=== PATIENT | female | born 1960 | race Caucasian/White ===

== ENCOUNTER 2024-01-06 15:16 | Emergency (ER) | payer OTHER, SELFPAY ==
[2024-01-06 15:18] VITALS: BP 159/90; PULSE 83; RESP 16; TEMP 36.6; O2SAT 95; BMI 21.7
--- NOTE | 2024-01-06 15:33 | ECG_ITS ---
APPROVED REPORT Exam: Resting ECG HR:78 bpm ECG Measurements Heart Rate 78 AXES NH 153 P 66 QRSd 86 QRS 71 QT 379 T 52 QTc 412 Conclusion SINUS RHYTHM NORMAL ECG Electronically signed by : RAFAELA NICOLE, 01/06/2024 23:56:43
--- NOTE | 2024-01-06 15:48 | CT_ITS ---
PROCEDURE INFORMATION: Exam: CTA Head With Contrast, Arteriography Exam date and time: 01/06/2024 4:32 PM Age: 63 years old Clinical indication: Vertigo TECHNIQUE: Imaging protocol: Computed tomographic angiography of the head with contrast. Exam focused on the arteries. 3D rendering (Not supervised by radiologist): MIP and/or 3D reconstructed images were created by the technologist. Radiation optimization: All CT scans at this facility use at least one of these dose optimization techniques: automated exposure control; mA and/or kV adjustment per patient size (includes targeted exams where dose is matched to clinical indication); or iterative reconstruction. Contrast material: ISOVUE 370; Contrast volume: 100 ml; Contrast route: INTRAVENOUS (IV); COMPARISON: CT HEAD/BRAIN WO CON 01/06/2024 4:32 PM FINDINGS: ANTERIOR CIRCULATION: Right internal carotid artery: Intracranial segment is patent with no significant stenosis. No aneurysm. Right middle cerebral artery: No occlusion or significant stenosis. No aneurysm. Right anterior cerebral artery: No occlusion or significant stenosis. No aneurysm. Left internal carotid artery: Intracranial segment is patent with no significant stenosis. No aneurysm. Left middle cerebral artery: No occlusion or significant stenosis. No aneurysm. Left anterior cerebral artery: The A1 segment of the left anterior cerebral artery is the dominant supply of the anterior cerebral circulation. POSTERIOR CIRCULATION: Right vertebral artery: No occlusion or significant stenosis. No aneurysm. Left vertebral artery: No occlusion or significant stenosis. No aneurysm. Basilar artery: No occlusion or significant stenosis. No aneurysm. Right posterior cerebral artery: No occlusion or significant stenosis. No aneurysm. Left posterior cerebral artery: No occlusion or significant stenosis. No aneurysm. Veins: There is no evidence of venous sinus thrombosis. Brain: There is no evidence of intracranial large vessel stenosis or occlusion. Cerebral ventricles: No ventriculomegaly. Bones/joints: Unremarkable. No acute fracture. Soft tissues: Unremarkable. IMPRESSION: 1. The A1 segment of the left anterior cerebral artery is the dominant supply of the anterior cerebral circulation. 2. There is no evidence of intracranial large vessel stenosis or occlusion. 3. There is no evidence of venous sinus thrombosis.
--- NOTE | 2024-01-06 15:48 | CT_ITS ---
PROCEDURE INFORMATION: Exam: CT Head Without Contrast Exam date and time: 01/06/2024 4:32 PM Age: 63 years old Clinical indication: Other: Vertigo TECHNIQUE: Imaging protocol: Computed tomography of the head without contrast. Radiation optimization: All CT scans at this facility use at least one of these dose optimization techniques: automated exposure control; mA and/or kV adjustment per patient size (includes targeted exams where dose is matched to clinical indication); or iterative reconstruction. COMPARISON: CT ANGIO HEAD 01/06/2024 4:32 PM FINDINGS: Brain: Normal. No hemorrhage. Unremarkable white matter. No mass effect. Cerebral ventricles: No ventriculomegaly. Paranasal sinuses: Visualized sinuses are unremarkable. No fluid levels. Mastoid air cells: Visualized mastoid air cells are well aerated. Bones: Unremarkable. No acute fracture. Soft tissues: Unremarkable. Vasculature: The vasculature demonstrates diffuse moderate atherosclerotic calcification. IMPRESSION: No acute intracranial process is identified.
--- NOTE | 2024-01-06 15:48 | CT_ITS ---
PROCEDURE INFORMATION: Exam: CTA Neck With Contrast Exam date and time: 01/06/2024 4:32 PM Age: 63 years old Clinical indication: Vertigo TECHNIQUE: Imaging protocol: Computed tomographic angiography of the neck with contrast. Exam focused on the cervical segments of the vasculature. 3D rendering (Not supervised by radiologist): MIP and/or 3D reconstructed images were created by the technologist. Radiation optimization: All CT scans at this facility use at least one of these dose optimization techniques: automated exposure control; mA and/or kV adjustment per patient size (includes targeted exams where dose is matched to clinical indication); or iterative reconstruction. Contrast material: ISOVUE 370; Contrast volume: 100 ml; Contrast route: INTRAVENOUS (IV); COMPARISON: CT ANGIO HEAD 01/06/2024 4:32 PM FINDINGS: Limitations: Motion artifact does moderately limit the sensitivity of this examination. Right common carotid artery: No stenosis. No dissection or occlusion. Right internal carotid artery: There is minimal calcification of the right internal carotid origin with less than 50% compromise of the lumen. Right external carotid artery: No occlusion or stenosis of the origin. Left common carotid artery: No stenosis. No dissection or occlusion. Left internal carotid artery: There is mild calcification of the left internal carotid origin with less than 50% compromise of the lumen. Left external carotid artery: No occlusion or stenosis of the origin. Right vertebral artery: No stenosis. No dissection or occlusion. Left vertebral artery: No stenosis. No dissection or occlusion. Thyroid: A 7 mm smooth nodule is seen in the left thyroid on image 110. No follow up is recommended. Soft tissues: Normal. No significant soft tissue swelling. Bones/joints: The spine demonstrates moderate degenerative changes at multiple levels. Lungs: Confluent centrilobular emphysematous changes are present in the lungs. IMPRESSION: 1. Confluent centrilobular emphysematous changes are present in the lungs. 2. Motion artifact does moderately limit the sensitivity of this examination. 3. There is minimal calcification of the right internal carotid origin with less than 50% compromise of the lumen. 4. There is mild calcification of the left internal carotid origin with less than 50% compromise of the lumen. 5. There are codominant vertebral arteries with no stenosis or dissection. COMMENTS: Consistent with the [employer]'s Incidental Findings Committee white paper (J Am Bud Radiol 2015): In patients aged 35 years and older with an incidental thyroid nodule equal to or greater than 1.[address], MRI or extrathyroidal US, further evaluation with dedicated thyroid US is recommended for patients with normal life expectancy and without comorbidities. For smaller nodules without suspicious features, no further evaluation or follow up is recommended. REFERENCES: NASCET CRITERIA. The degree of stenosis in the cervical segment of the internal carotid artery is based on NASCET criteria. Normal is no stenosis. Mild is less than 50% stenosis. Moderate is 50-69% stenosis. Severe is 70% to 99% stenosis. Total occlusion is no detectable patent lumen.
--- NOTE | 2024-01-06 15:56 | [facility].EDGENADL ---
Discharge Plan Disposition Patient Disposition: Home, Self-Care Condition: Good Prescriptions Prescriptions: New diazepam [Valium] 5 mg tablet 5 mg PO Q8H PRN (Reason: vertigo) Qty: 10 0RF meclizine 25 mg tablet 25 mg PO QID PRN (Reason: dizziness) Qty: 20 0RF Referrals Follow up/Referrals: Radha Fink APRN [Nurse Practitioner] - See instructions Provider,Referral, [Primary Care Provider] - See instructions Activity Restrictions/Add. Instructions Additional Instructions/Restrictions: You were evaluated in the emergency department today. There was some blood in your urine, so I would recommend following up with your primary care provider for monitoring of this. You also had low potassium, which your provider can keep an eye on. 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 This is a controlled substance that is very sedating, so use caution. Do not drive or operate heavy machinery while taking this medication. I sent in meclizine, which is the active ingredient Dramamine, for you to take for less severe symptoms. Please follow-up closely with your primary care provider. We have also provided you with information for ENT for assessment as well should your symptoms continue. Return to the emergency department for new or worsening symptoms, such as difficulty walking, new numbness or tingling, new vision changes, or other concerns. Clinical Impressions Clinical Impression: Peripheral vertigo, Hypokalemia Stand Alone Forms Stand Alone Forms: Work/School Release Instructions Patient Instructions: DI for Vertigo, DI for Benign Paroxysmal Positional Vertigo Print Language Print Language: [place] Discharge ED Provider: Charisse Falk General Adult HPI General Chief complaint: Dizziness Stated complaint: Dizzinesss,nausea Time Seen by Provider: 01/06/24 15:35 Mode of Arrival: Ambulatory Source of Information: Patient Limitations: No Limitations Description of Symptoms (Recalled from ER Triage Doc. by RN): Patient reports dizziness when she gets up. States this has been going on since Wednesday. Reports taking a Dramamine and it helped the other day however today it did not help. Denies any pain at this time. History of Present Illness HPI narrative: This patient is a 63-year-old female who reports intermittent dizziness upon position changes that has been going on for approximate 4 days now. She feels like the room is spinning. She did take Dramamine with some improvement, but today it does not seem to be helping. She is able to walk still but has to have some assistance. Symptoms seem to be worse with head movements. She also has nausea associated with this. She denies any significant headache, visual disturbance, numbness, tingling, speech difficulty, or other concerns. Related Data Previous Rx's ?Medication ?Instructions ?Recorded diazepam 5 mg tablet (Valium) 5 mg PO Q8H PRN vertigo #10 tabs 01/06/24 meclizine 25 mg tablet 25 mg PO QID PRN dizziness #20 tabs 01/06/24 Allergies Allergy/AdvReac Type Severity Reaction Status Date / Time No Known Allergies Allergy Verified 01/06/24 15:28 [facility] Disclaimer: The information contained in this section may have been updated after the patient was seen, as this information can be updated by other users. Social History Smoking Status: Never smoker alcohol intake: never current occupational status: employed Travel in the last 8 weeks: None ROS Obtained: Yes All systems reviewed & no additional complaints except as documented Physical Exam General General appearance: alert and in no apparent distress Head Head exam: atraumatic and normocephalic Eye Eye exam: Present normal appearance, PERRL, EOMI and nystagmus (unidirectional horizontal nystagmus to the L.) ENT ENT exam: Present normal exam, normal oropharynx, mucous membranes moist and normal external ear exam Neck Neck exam: Present normal inspection, full ROM and trachea midline; Absent tenderness Chest Chest inspection: Present normal inspection and symmetric chest wall rise; Absent tenderness Respiratory Respiratory exam: Present normal lung sounds bilaterally; Absent respiratory distress, wheezes, stridor or accessory muscle use Cardiovascular Cardiovascular exam: Present regular rate and normal rhythm Abdominal Exam Abdominal exam: Present soft; Absent distention, tenderness or guarding Extremities Exam Extremities exam: Present normal inspection, full ROM and normal capillary refill; Absent tenderness or edema Back Exam Back exam: Present normal inspection and full ROM; Absent tenderness Neurological Exam Neurological exam: Present alert, oriented X3, CN II-XII intact, normal gait and other (HINTS reassuring for peripheral vertigo); Absent motor sensory deficit Psychiatric Psychiatric exam: Present normal affect and normal mood Skin Skin exam: Present warm and dry Medical Decision Making Medical Records Medical records reviewed: Yes I reviewed the patient's medical records. Fuad Inquiry Pt receiving controlled substance: Yes Fuad was queried for this patient: Yes Risks and benefits of using a controlled substance: were discussed with pt by me Vital Signs: 01/06/24 15:18 01/06/24 17:00 01/06/24 17:30 Temperature 97.9 F Temperature Source Oral Pulse Rate 85 82 Pulse Rate [Radial] 83 Respiratory Rate 16 15 12 Blood Pressure 129/79 137/81 Blood Pressure [Right Arm] 159/90 H Blood Pressure Mean Blood Pressure Mean [Right Arm] 113 Blood Pressure Source Blood Pressure Source [Right Arm] Automatic Cuff Blood Pressure Position Blood Pressure Position [Right Arm] Supine 02 Sat by Pulse Oximetry 95 100 100 Oxygen Delivery Method Room Air 01/06/24 18:00 01/06/24 19:00 Temperature 97.9 F Temperature Source Oral Pulse Rate 84 84 Pulse Rate [Radial] Respiratory Rate 8 L 8 L Blood Pressure 131/83 131/83 Blood Pressure [Right Arm] Blood Pressure Mean 107 Blood Pressure Mean [Right Arm] Blood Pressure Source Automatic Cuff Blood Pressure Source [Right Arm] Blood Pressure Position Sitting Blood Pressure Position [Right Arm] 02 Sat by Pulse Oximetry 97 Oxygen Delivery Method Room Air Lab Data Lab results reviewed: Yes I reviewed the patient's lab results. Lab Results 01/06/24 15:30: WBC 8.3, RBC 4.62, Hgb 14.1, Hct 42.9, MCV 93.0, MCH 30.5, MCHC 32.8, RDW 14.2, Plt Count 288, MPV 7.1 L, Neut % (Auto) 74.9, Lymph % (Auto) 18.5, [place] % (Auto) 5.6, Eos % (Auto) 0.3, Baso % (Auto) 0.7, Neut # (Auto) 6.2, Lymph # (Auto) 1.5, [place] # (Auto) 0.5, Eos # (Auto) 0.0, Baso # (Auto) 0.1, Sodium 140, Potassium 3.1 L, Chloride 104, Carbon Dioxide 28, Anion Gap 11.1, BUN 11, Creatinine 0.70, Estimated Creat Clear 48, Estimated GFR 85, Est GFR ( Amer) 103, Glucose 98, Calcium 9.7, Total Bilirubin 0.6, AST 40 H, ALT 30, Alkaline Phosphatase 72, Total Protein 7.7, Albumin 4.4, Globulin 3.3 H, Albumin/Globulin Ratio 1.3 01/06/24 18:06: Urine Color Yellow, Urine Appearance Clear, Urine pH 7.0, Ur Specific [place] 1.010, Urine Protein Negative, Urine Glucose (UA) Negative, Urine Ketones 1+, Urine Blood 2+, Urine Nitrate Negative, Urine Bilirubin Negative, Urine Urobilinogen 0.2, Ur Leukocyte Esterase Negative, Urine RBC Occasional 01/06/24 15:30 01/06/24 15:30 Orders (Tests/Meds): ED MEDICATIONS Discontinued Medications Generic Name Dose Route Start Last Admin Trade Name Freq PRN Reason Stop Dose Admin Diazepam 5 mg 01/06/24 15:48 01/06/24 16:00 Diazepam 5mg Tablet PO 01/06/24 15:49 5 mg ONCE ONE Administration Lactated Ringer's 1,000 mls @ 999 mls/hr 01/06/24 16:21 01/06/24 16:39 Lactated Ringer's 1000 Ml Bag IV 01/06/24 17:21 999 mls/hr .Q1H1M ONE Administration Potassium Chloride/Water 100 mls @ 100 mls/hr 01/06/24 16:21 01/06/24 16:39 Potassium Chloride 10meq/100ml Ivpb IV 01/06/24 17:20 100 mls/hr ONCE ONE Administration Iopamidol 100 ml 01/06/24 16:41 01/06/24 16:42 Iopamidol-370 (76%);100ml Bottle IV 01/06/24 16:42 100 ml ONCE ONE Administration Metoclopramide HCl 5 mg 01/06/24 16:21 01/06/24 16:39 Metoclopramide Hcl 10mg/2ml Vial IVP 01/06/24 16:22 5 mg ONCE ONE Administration Potassium Chloride 40 meq 01/06/24 16:21 01/06/24 16:39 Potassium Chloride 20meq Tab PO 01/06/24 16:22 40 meq ONCE ONE Administration Sodium Chloride 10 ml 01/06/24 15:34 Sodium Chloride 0.9% 10ml Flush Syringe IV 02/05/24 15:33 NEEDED PRN Maintain IV Site Sodium Chloride 10 ml 01/06/24 16:41 01/06/24 16:42 Sodium Chloride 0.9% 10ml Syr (Rad Only) IV 01/06/24 16:42 10 ml ONCE ONE Administration Sodium Chloride 50 ml 01/06/24 16:41 01/06/24 16:42 0.9 % Sodium Chloride 50 Ml Vial IV 01/06/24 16:42 50 ml ONCE ONE Administration ORDERS Category Date Time Status CT angio head Stat Cat Scan 01/06/24 15:[address] angio neck Stat Cat Scan 01/06/24 15:[address] head/brain wo con Stat Cat Scan 01/06/24 15:48 Completed CBC w/Auto Diff [Complete Blood Count Auto Diff] Stat Lab 01/06/24 15:30 Completed CMP [Comprehensive Metabolic Panel] Stat Lab 01/06/24 15:30 Completed UA [Urinalysis and Microscopic] Stat Lab 01/06/24 18:06 Completed ECG Data Tracing #1: I reviewed this ECG and interpreted as documented below: Normal sinus rhythm with a ventricular rate of [address] changes concerning for ischemia. Normal axis and intervals. ECG initial impression date: 01/06/24 ECG initial impression time: 15:35 Medical Decision Narrative: In summary, this patient is a 63-year-old female presenting to the Emergency Department for evaluation of vertigo. Differential diagnoses considered include but are not limited to vestibular neuritis, BPPV, M?ni?re's disease, CVA, dysrhythmia, orthostatic hypotension. Ruling out the most morbid conditions drove assessment. It should be noted patient's history includes anxiety which may or may not be at goal therapy. This complicates all aspects of care by increasing patient's risk for morbidity. On exam, the patient is resting comfortably in bed in no acute distress. She has a unidirectional horizontal nystagmus to the left and HINTS exam is reassuring for peripheral vertigo. She has no deviation with test of skew, but does have corrective saccade with head impulse test to the R, which are both reassuring for peripheral vertigo. She has no vertical nystagmus, only unidirectional horizontal, which is again reassuring for peripheral. Her symptoms are also positional and fatiguable, which are reassuring. Workup included CT head, CT angiogram head and neck, CBC, CMP, EKG. EKG obtained is reassuring. She was given oral Valium for symptomatic improvement. I independently interpreted CT scan prior to the radiologist read and noted no obvious intracranial hemorrhage or large space-occupying lesion. Please see their read for final interpretation. Labs were obtained that demonstrated hypokalemia without other acutely concerning abnormalities. Potassium replacement was ordered. Patient does have hematuria without UTI symptoms. I notified her of this and advised close outpatient follow-up.. On reassessment, patient had great improvement after administration of Valium. She is ambulatory without issue. She states she is feeling much better. Vitals are reassuring cardiac telemetry. After IV and oral potassium replacement, I feel that she is appropriate for discharge home with diagnosis of likely peripheral vertigo. She was given prescription for Valium as well as meclizine. She was given strict return precautions and instructions for close outpatient follow-up. She was discharged after all questions were answered. Critical Care Critical Care Time Critical Care Time: No
[2024-01-06 15:57] LABS: Basophils # 0.1 K/mm3 (0-0.2); Basophils % 0.7 % (0.1-2.0); Eosinophils % 0.3 % (0.1-12.0); Hematocrit 42.9 % (37.0-47.0); Hemoglobin 14.1 g/dL (12.2-16.2); Lymphocytes # 1.5 K/mm3 (0.7-4.5); Lymphocytes % 18.5 % (10-50); Mean Corpuscular HGB Conc 32.8 g/dL (31.8-35.4); Mean Corpuscular Hemoglobin 30.5 pg (27.0-31.2); Mean Platelet Volume 7.1 fl (7.4-10.4); Monocytes # 0.5 K/mm3 (0.1-1.0); Monocytes % 5.6 % (1.7-9.3); Neutrophils # 6.2 K/mm3 (1.8-7.8); Neutrophils % 74.9 % (37.0-80.0); Platelet Count 288 K/mm3 (142-424); Red Blood Count 4.62 M/mm3 (4.20-5.40); Red Cell Distribution Width 14.2 % (11.5-17.5); White Blood Count 8.3 K/mm3 (4.8-10.8)
[2024-01-06] MEDS: diazePAM 5MG TABLET 5 MG PO (16:00)
[2024-01-06 16:02] LABS: Alanine Aminotransferase 30 U/L (12-78); Albumin Level 4.4 g/dl (3.5-5.0); Albumin/Globulin Ratio 1.3 (1.1-1.8); Alkaline Phosphatase 72 U/L (38-126); Anion Gap 11.1 mEq/L (5-15); Aspartate Amino Transferase 40 U/L (14-36); Bilirubin,Total 0.6 mg/dl (0.2-1.3); Blood Urea Nitrogen 11 mg/dl (7-17); Calcium 9.7 mg/dl (8.4-10.2); Carbon Dioxide 28 mmol/L (22.0-30.0); Chloride 104 mmol/L (98-107); Creatinine Clearance Estimated 48 mL/min (50-200); Estimated Glomerular Filt Rate 85 ml/min (>60); GFR (African American) 103 ML/MIN (>60); Globulin 3.3 g/dL (1.3-3.2); Glucose 98 mg/dl (74-100); Potassium 3.1 mmoL/L (3.5-5.1); Sodium 140 mmol/L (136-145); Total Protein,Serum 7.7 g/dl (6.3-8.2)
[2024-01-06] MEDS: METOCLOPRAMIDE HCL 10MG/2ML VIAL 5 MG IVP (16:39)
[2024-01-06] MEDS: KCl 10mEq/100ml 100 ML 100 MEQ IV (16:39)
[2024-01-06] MEDS: LACTATED RINGERS 1000ML 1,000 ML 999 ML IV (16:39)
[2024-01-06] MEDS: POTASSIUM CHLORIDE 20MEQ TAB 40 MEQ PO (16:39)
[2024-01-06] MEDS: IOPAMIDOL-370 (76%);100ML BOTTLE 100 ML IV (16:42)
[2024-01-06] MEDS: 0.9 % SODIUM CHLORIDE 50 ML VIAL IV (16:42)
[2024-01-06] MEDS: SODIUM CHLORIDE 0.9% 10ML SYR (RAD ONLY) 10 ML IV (16:42)
[2024-01-06 17:00] VITALS: BP 129/79; PULSE 85; RESP 15; O2SAT 100
[2024-01-06 17:30] VITALS: BP 137/81; PULSE 82; RESP 12; O2SAT 100
[2024-01-06 18:00] VITALS: BP 131/83; PULSE 84; RESP 8; O2SAT 97
[2024-01-06 18:11] LABS: Microscopic, Urine URINE MICROSCOPIC (MICROSCOPIC)
[2024-01-06 18:15] LABS: Appearance,Urine CLEAR (Clear); Bilirubin,Urine Negative (Negative); Blood, Urine 2+ (Negative); Color,Urine YELLOW (Yellow); Glucose,Urine (UA) Negative (Negative); Ketones,Urine 1+ (Negative); Leukocyte Esterase,Urine Negative (Negative); Nitrate,Urine Negative (Negative); Protein,Urine Negative (Negative); Urobilinogen,Urine 0.2 EU/dl (0.2)
[2024-01-06 18:37] LABS: RBC,Urine Occasional #/hpf (0-3)
[2024-01-06 19:00] VITALS: BP 131/83; PULSE 84; RESP 8; TEMP 36.6; O2SAT 97
== END 2024-01-06 19:01 | disposition home or self-care (01) ==
PROVIDERS: Emergency Provider Emergency Medicine
DX: H81.399 Other peripheral vertigo, unspecified ear (principal); E87.6 Hypokalemia
CPT/HCPCS: 70450; 70496; 70498; 80053; 81001; 85025; 93005; 96365; 96375; 99285; J2765; J3480; J7120; Q9967